=== PATIENT | male | born 1990 | race Asian ===

== ENCOUNTER 2017-04-11 09:47 | Outpatient (CLI) | payer OTHER ==
[~2017-04-11 09:47] MED LIST: ACCU-CHEK COMPACT ST VI; ACET-689 PO; ACET7.5T70 PO; ACID REDUCER150 MG OR; CHLORTHALID25 MG OR; CLONIDINE0.1 MG PO; CYCL10TA35 PO; HYDR25TA60 PO; HYDR2TAB12 PO; HYDR4TAB12 PO; HYDROCHLOROT12.5 M1 PO; LISI10TA11 PO; LISI20TA11 PO; METO50TA27 PO; METOPROLOL25 M1 PO; NEURONTIN 100M100 MG OR; NITR0.4S2 SL; NYSTCRE EX; SIMV10TA PO; [UNRECOGNIZED DRUG - SUPPLY] XX; [UNRECOGNIZED DRUG - SUPPLY] XX
== END 2017-04-12 04:39 | disposition home or self-care (01) ==
LOC: LABW 09:47
DX: R25.2 Cramp and spasm (principal); E11.9 Type 2 diabetes mellitus without complications
CPT/HCPCS: 36415; 83036; 83735

== ENCOUNTER 2019-04-28 15:53 | Outpatient (CLI) | payer OTHER ==
[2019-04-28 16:35] LABS: PLATELET COUNT 336 K/uL (142-355)
== END 2019-04-28 21:31 | disposition home or self-care (01) ==
LOC: LABW 15:53
PROVIDERS: Family Medicine
DX: G89.4 Chronic pain syndrome (principal); R25.2 Cramp and spasm; G62.89 Other specified polyneuropathies; M79.18 Myalgia, other site; I10 Essential (primary) hypertension; E11.9 Type 2 diabetes mellitus without complications; E78.1 Pure hyperglyceridemia; E53.8 Deficiency of other specified B group vitamins; G47.00 Insomnia, unspecified; E55.9 Vitamin D deficiency, unspecified; R82.998 Other abnormal findings in urine
CPT/HCPCS: 36415; 80053; 80061; 81000; 82085; 82306; 82550; 82607; 83036; 83615; 83735; 84439; 84443; 84550; 85027; 85651; 87088

== ENCOUNTER 2021-02-21 13:58 | Emergency (ER) | payer OTHER ==
[~2021-02-21] VITALS: Ht 177.8 cm; Wt 112.5 kg
[2021-02-21 14:08] VITALS: BP 184/98; TEMP 98.2
== END 2021-02-21 15:41 | disposition home or self-care (01) ==
LOC: ED 13:58
PROC: 0HQGXZZ Repair Left Hand Skin, External Approach (ICD-10-PCS; principal; 2021-02-21)
PROC: 2W3KX1Z Immobilization of Left Finger using Splint (ICD-10-PCS; 2021-02-21)
DX: S61.217A Laceration without foreign body of left little finger without damage to nail, initial encounter (principal); W29.8XXA Contact with other powered hand tools and household machinery, initial encounter; Y92.098 Other place in other non-institutional residence as the place of occurrence of the external cause
CPT/HCPCS: 90471; 90715; 96372; 99283; J2001; J7040

== ENCOUNTER 2021-03-09 07:50 | Emergency (ER) | payer OTHER ==
[~2021-03-09] VITALS: Ht 177.8 cm; Wt 112.5 kg
[2021-03-09 08:15] VITALS: BP 168/98; TEMP 98.2
== END 2021-03-09 08:15 | disposition home or self-care (01) ==
LOC: ED 07:50
DX: Z48.02 Encounter for removal of sutures (principal)

== ENCOUNTER 2021-08-02 17:58 | Emergency (ER) | payer OTHER ==
[~2021-08-02] VITALS: Ht 177.8 cm; Wt 102.1 kg
[2021-08-02 18:05] VITALS: TEMP 97.8
[2021-08-02] MEDS ORDERED: SULFACET SOD10 % OPTH (18:47)
[2021-08-02 18:50] VITALS: BP 140/85
== END 2021-08-02 18:50 | disposition home or self-care (01) ==
LOC: ED 17:58
DX: S05.01XA Injury of conjunctiva and corneal abrasion without foreign body, right eye, initial encounter (principal); W45.8XXA Other foreign body or object entering through skin, initial encounter; Y92.098 Other place in other non-institutional residence as the place of occurrence of the external cause
CPT/HCPCS: 99282